=== PATIENT | female | born 1960 | race Caucasian/White ===

== ENCOUNTER → 2018-03-19 | Day surgery (SDC) | payer BC, OTHER ==
[2018-03-18 12:26] VITALS: BMI 34.7
[2018-03-19 07:19] VITALS: TEMP 97.4
--- NOTE | 2018-03-19 10:06 | RAD ---
THREE VIEWS CERVICAL SPINE: Indication: Radiculopathy. FINDINGS: There is mild anterior translational motion seen with flexion at C2-3, C3-4, and C4-5 that reduces wi th neutral and extension positioning. IMPRESSION: Mild abnormal translation motion at C2-3, C3-4, and C4-5 with flexion. POS: [facility]
--- NOTE | 2018-03-19 10:42 | CT ---
CERVICAL SPINE CT MYELOGRAM: Date: 03-19-18 Comparison: None. History: Cervical pain, radiculopathy, right arm pain and numbness. Technique: Following the intrathecal administration of Isovue 300, serial axial CT imaging is obtaine d at 2.5 mm intervals from skull base through lung apices. Coronal and sagittal reformatted imaging o btained. FINDINGS: The imaged lung apices are unremarkable. The C1 ring is intact. The occipital condyles, dens, and C1-2 articulation appear within normal limits. There is mild degenerative change at the atlantoaxial interspace. Cervical vertebral body height and alignment appears within normal limits. No prevertebral soft tissue swelling is seen. C2-3: Small central disc protrusion with no associated central canal stenosis. Mild bilateral facet h ypertrophy with no significant neural foraminal stenosis. C3-4: Mild disc bulge with partial effacement of ventral thecal sac and no central canal stenosis. Mi ld bilateral facet hypertrophy with no significant neural foraminal stenosis. C4-5: There is mild facet and uncal vertebral osteophyte formation on the right with mild right neura l foraminal stenosis. No significant central canal or left neural foraminal stenosis. C5-6: There is disc space narrowing and disc bulge with effacement of the ventral thecal sac and mild central canal stenosis. There is bilateral facet and uncal vertebral osteophyte formation, right gre ater than left, with severe right sided neural foraminal stenosis and mild left neural foraminal sten osis. C6-7: There is disc space narrowing and disc bulge with partial effacement of the ventral thecal sac and mild central canal stenosis. There is prominent facet and uncal vertebral osteophyte formation on the right. Uncal vertebral osteophyte extension into the right neural foramen causes severe right ne ural foraminal stenosis. There is mild left neural foraminal stenosis. C7-T1: Mild bilateral facet hypertrophy. Mild bilateral neural foraminal stenosis. No significant zari tral canal stenosis. No worrisome lytic or blastic bone lesion. IMPRESSION: Severe neural foraminal stenosis noted on the right at C5-6 and C6-7 on the basis of uncovertebral an d facet osteophyte formation. POS: [facility]
--- NOTE | 2018-03-19 12:36 | RAD ---
CERVICAL SPINE MYELOGRAM: Date: 03-19-18 History: Right upper extremity radiculopathy. FINDINGS: Informed consent was obtained prior to the procedure. 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 Frontal imagin g of the lumbar spine demonstrates normal vertebral body height and alignment. The patient was placed in the oblique position on the fluoroscopic table and the skin overlying the l ower lumbar spine was prepped and draped in normal sterile fashion. Skin at the L2-3 level was anesthetized with 1% buffered Lidocaine. With intermittent fluoroscopic gu idance, a 22 gauge spinal needle was advanced into the thecal sac and removal of the stylet yields cl ear cerebral spinal fluid. Approximately 10 cc of Isovue 300 was injected. Needle was removed. The pa tient tolerated the procedure well. The head was tilted down to extend the contrast media into the ce rvical spine and the patient was sent to the CT scanner for CT cervical spine myelogram. Exposure Data: 1.1 minutes fluoroscopic time. 377.5 mGy*cm^2. IMPRESSION: Successful cervical spine myelogram as detailed above. POS: [facility]
== END ==
LOC: RAD 06:48
PROVIDERS: ATTEND Physician Assistant Surgical
DX: M48.02 Spinal stenosis, cervical region (principal)
CPT/HCPCS: 62302; 72050; 72126

== ENCOUNTER 2020-09-20 07:01 | Outpatient (CLI) | payer OTHER ==
[2020-09-20 18:37] LABS: Anion Gap 14 mmol/L (10-20); BUN (Urea Nitrogen) 16 mg/dL (9.8-20.1); Calc. Creatinine Clearance 0 mL/min (70-130); Calcium 8.5 mg/dL (7.8-10.44); Carbon Dioxide 23 mmol/L (22-29); Chloride 104 mmol/L (98-107); Estimated GFR-MDRD 59; Glucose 117 mg/dL (70-105); Potassium 3.7 mmol/L (3.5-5.1); Sodium 137 mmol/L (136-145)
[2020-09-20 18:39] LABS: Hemoglobin 12.7 g/dL (12.0-16.0); Mean Corpuscular HGB CONC 32.6 G/DL (32.0-36.0); Mean Corpuscular Hemoglobin 27.9 PG (27.0-33.0); Mean Corpuscular Volume 85.3 fl (80.0-100.0); Platelet Count 211 10x3/uL (130-400); RBC Distribution Width 13.8 % (11.5-14.5); Red Blood Cell (RBC) Count 4.56 10x6/uL (3.90-5.20); White Blood Cell (WBC) Count 6.9 10x3/uL (4.5-11.0)
[2020-09-20 18:44] LABS: INR-International Normal Ratio 0.9; PTT 26.4 sec (22.0-33.0); Prothrombin Time 9.7 sec (9.5-12.1)
[2020-09-21 03:40] LABS: SARS-CoV-2 MS2 Positive; SARS-CoV-2 N Gene Negative; SARS-CoV-2 S Gene Negative; SARS-CoV-2 by NAA Not Detected (NotDetected); SARS-CoV-2 orf1ab Negative
== END 2020-09-20 07:02 | disposition home or self-care (01) ==
LOC: LABBT 07:01
PROVIDERS: ATTEND Internal Medicine Cardiovascular Disease
DX: Z01.818 Encounter for other preprocedural examination (principal); Z20.828 Contact with and (suspected) exposure to other viral communicable diseases; I46.9 Cardiac arrest, cause unspecified
CPT/HCPCS: 80048; 85027; 85610; 85730; 87635; 93005; 93010; U0003

== ENCOUNTER 2020-09-25 07:04 | Day surgery (SDC) | payer OTHER ==
[2020-09-19 12:24] VITALS: BMI 36.4
[2020-09-25] MEDS ORDERED: Atropine Sulfate 1 mg/10 ml Syringe ONE (08:36)
[2020-09-25] MEDS ORDERED: Gentamicin 80 MG/2 ML VIAL ONE (09:49)
[2020-09-25] MEDS ORDERED: CEFAZOLIN 1 GM VIAL ONE (09:49)
[2020-09-25] MEDS ORDERED: Fentanyl 100 MCG/2 ML VIAL ONE ×2 (10:01→11:45)
[2020-09-25] MEDS ORDERED: Midazolam HCl 2 mg/2 ml Vial ONE (10:01)
[2020-09-25] MEDS ORDERED: PROPOFOL 20 ML ONE (11:00)
== END 2020-09-25 13:00 | disposition home or self-care (01) ==
LOC: CCL 07:04
PROVIDERS: ATTEND Internal Medicine Cardiovascular Disease
PROC: 0JPT0PZ Removal of Cardiac Rhythm Related Device from Trunk Subcutaneous Tissue and Fascia, Open Approach (ICD-10-PCS; principal; 2020-09-25)
PROC: 0JH608Z Insertion of Defibrillator Generator into Chest Subcutaneous Tissue and Fascia, Open Approach (ICD-10-PCS; principal; 2020-09-25)
DX: I46.9 Cardiac arrest, cause unspecified (principal); I25.10 Atherosclerotic heart disease of native coronary artery without angina pectoris; I10 Essential (primary) hypertension; K21.9 Gastro-esophageal reflux disease without esophagitis; Z79.82 Long term (current) use of aspirin; Z79.899 Other long term (current) drug therapy; Z87.891 Personal history of nicotine dependence; Z95.810 Presence of automatic (implantable) cardiac defibrillator
CPT/HCPCS: 33262; C1786; J0461; J0690; J1580; J2250; J2704; J3010

== ENCOUNTER 2021-02-09 14:15 | Outpatient (CLI) | payer OTHER | END 2021-02-09 14:16 | disposition home or self-care (01) | LOC: BICMAMMO 14:15 | PROVIDERS: ATTEND Family Medicine | DX: Z13.820 Encounter for screening for osteoporosis (principal); Z78.0 Asymptomatic menopausal state | CPT/HCPCS: 77080 ==

== ENCOUNTER 2021-09-27 07:22 | Outpatient (CLI) | payer OTHER ==
[2021-09-27 17:26] LABS: SARS-CoV-2 PCR by NAA Not Detected (NotDetected)
== END 2021-09-27 07:23 | disposition home or self-care (01) ==
LOC: LABBT 07:22
PROVIDERS: ATTEND Internal Medicine Gastroenterology
DX: Z01.812 Encounter for preprocedural laboratory examination (principal); Z86.010 Personal history of colon polyps; Z20.822 Contact with and (suspected) exposure to COVID-19
CPT/HCPCS: U0003; U0005

== ENCOUNTER 2022-06-28 14:25 | Outpatient (CLI) | payer BC | END 2022-06-28 14:26 | disposition home or self-care (01) | LOC: BICRAD 14:25 | PROVIDERS: ATTEND Family Medicine | DX: M47.22 Other spondylosis with radiculopathy, cervical region (principal) | CPT/HCPCS: 72040 ==

== ENCOUNTER 2022-08-29 12:58 | Outpatient (CLI) | payer BC | END 2022-08-29 12:59 | disposition home or self-care (01) | LOC: MRI 12:58 | PROVIDERS: ATTEND Anesthesiology | DX: M47.22 Other spondylosis with radiculopathy, cervical region (principal); M48.02 Spinal stenosis, cervical region | CPT/HCPCS: 72141 ==

== ENCOUNTER 2023-02-14 13:08 | Outpatient (CLI) | payer BC, OTHER ==
[2023-02-14 14:43] LABS: Anion Gap 13 mmol/L (10-20); BUN (Urea Nitrogen) 13 mg/dL (9.8-20.1); Calc. Creatinine Clearance 0 mL/min (70-130); Calcium 9.4 mg/dL (7.8-10.44); Carbon Dioxide 28 mmol/L (22-29); Chloride 104 mmol/L (98-107); Estimated GFR 75; Glucose 99 mg/dL (70-105); Potassium 4.1 mmol/L (3.5-5.1); Sodium 141 mmol/L (136-145)
== END 2023-02-14 13:09 | disposition home or self-care (01) ==
LOC: LABBT 13:08
PROVIDERS: ATTEND Neurological Surgery
DX: Z01.812 Encounter for preprocedural laboratory examination (principal); M54.12 Radiculopathy, cervical region
CPT/HCPCS: 80048

== ENCOUNTER 2023-02-19 07:18 | Day surgery (SDC) | payer BC ==
[2023-02-18 10:16] VITALS: BMI 36.8
[2023-02-19] MEDS ORDERED: Fentanyl 250 MCG/5 ML VIAL ONE (10:13)
[2023-02-19] MEDS ORDERED: Sodium Chloride 0.9% 100 ML ONE ×2 (10:19→14:09)
[2023-02-19] MEDS ORDERED: CEFAZOLIN 2 GM VIAL ONE ×2 (10:19→14:09)
[2023-02-19] MEDS ORDERED: PROPOFOL 200 MG/20 ML VIAL ONE (10:22)
[2023-02-19] MEDS ORDERED: Ketorolac Tromethamine 30 MG/ML VIAL ONE (10:22)
[2023-02-19] MEDS ORDERED: PHENYLEPHRINE-NS 100 MCG/ML 10 ML SYRINGE ONE (10:22)
[2023-02-19] MEDS ORDERED: Ondansetron PF 4 MG/2 ML Vial ONE (10:22)
[2023-02-19] MEDS ORDERED: Dexamethasone 20 MG/5 ML VIAL ONE (10:22)
[2023-02-19] MEDS ORDERED: Rocuronium Bromide 10 MG/ML (10ML VIAL) ONE (10:22)
[2023-02-19] MEDS ORDERED: Promethazine HCl 25 MG/ML VIAL ONE (12:18)
[2023-02-19] MEDS ORDERED: fentaNYL 50 mcg/mL 1 mL Vial ONE (12:57)
[2023-02-19] MEDS ORDERED: HYDROcodone/Acetaminophen 5/325 mg Tablet ONE (14:09)
== END 2023-02-19 15:23 | disposition home or self-care (01) ==
LOC: SDC 07:18
PROVIDERS: ATTEND Neurological Surgery
PROC: 0RT30ZZ Resection of Cervical Vertebral Disc, Open Approach (ICD-10-PCS; principal; 2023-02-19)
PROC: 0RG20A0 Fusion of 2 or more Cervical Vertebral Joints with Interbody Fusion Device, Anterior Approach, Anterior Column, Open Approach (ICD-10-PCS; principal; 2023-02-19)
DX: M54.12 Radiculopathy, cervical region (principal); M48.02 Spinal stenosis, cervical region; G89.4 Chronic pain syndrome; I11.9 Hypertensive heart disease without heart failure; I47.20 Ventricular tachycardia, unspecified; I25.10 Atherosclerotic heart disease of native coronary artery without angina pectoris; E78.2 Mixed hyperlipidemia; Z87.891 Personal history of nicotine dependence; Z79.1 Long term (current) use of non-steroidal anti-inflammatories (NSAID); Z79.82 Long term (current) use of aspirin; Z79.899 Other long term (current) drug therapy; Z95.810 Presence of automatic (implantable) cardiac defibrillator
CPT/HCPCS: C1713; C1889; J1100; J1885; J2405; J2550; J2704; J3010; J3490

== ENCOUNTER 2023-09-29 08:34 | Day surgery (SDC) | payer BC ==
[2023-09-26 10:35] VITALS: BMI 34.0
[2023-09-29] MEDS ORDERED: Midazolam HCl 2 mg/2 ml Vial ONE (11:01)
[2023-09-29] MEDS ORDERED: PROPOFOL 200 MG/20 ML VIAL ONE (11:14)
== END 2023-09-29 12:25 | disposition home or self-care (01) ==
LOC: SDC 08:34
PROVIDERS: ATTEND Internal Medicine Gastroenterology
PROC: 0DBN8ZX Excision of Sigmoid Colon, Via Natural or Artificial Opening Endoscopic, Diagnostic (ICD-10-PCS; principal; 2023-09-29)
DX: Z12.11 Encounter for screening for malignant neoplasm of colon (principal); Z86.010 Personal history of colon polyps; K57.30 Diverticulosis of large intestine without perforation or abscess without bleeding; K64.8 Other hemorrhoids; K62.89 Other specified diseases of anus and rectum; K63.89 Other specified diseases of intestine; I10 Essential (primary) hypertension; E78.5 Hyperlipidemia, unspecified; G62.9 Polyneuropathy, unspecified; Z79.82 Long term (current) use of aspirin; Z95.810 Presence of automatic (implantable) cardiac defibrillator; Z79.899 Other long term (current) drug therapy
CPT/HCPCS: 88305; J2250; J2704